=== PATIENT | male | born 1955 | race Caucasian/White ===

== ENCOUNTER 2020-11-05 20:08 | Emergency (ER) | payer BC ==
[~2020-11-05] VITALS: Ht 175.3 cm; Wt 84.1 kg
[2020-11-05] MEDS ORDERED: ketorolac tromethamine 15mg/ml inj. IM ONE (21:00)
[2020-11-05 21:47] LABS: CLARITY,URINE CLEAR (Clear); COLOR,URINE YELLOW (Yellow); GLUCOSE, URINE NEGATIVE (Neg); KETONES,URINE NEGATIVE (Neg); LEUKOCYTE ESTERASE ,URINE NEGATIVE (Neg); NITRITES, URINE NEGATIVE (Neg); OCCULT BLOOD,URINE NEGATIVE (Neg); PH,URINE 5.5 (4.8-8.0); PROTEIN,URINE NEGATIVE (Neg); UROBILINOGEN,URINE 0.2 E.U/dL (0.2-1.0)
[2020-11-05 21:48] LABS: UA COLLECTION TYPE URINAL
[2020-11-05 22:14] VITALS: BP 122/74
[2020-11-05] MEDS ORDERED: baclofen 10mg tablet PO STA (23:05)
[2020-11-05] MEDS ORDERED: LIDOcaine 5% patch TP STA (23:08)
[2020-11-05] MEDS ORDERED: BACL-11 PO (23:10)
[2020-11-05] MEDS ORDERED: LIDO700A32 TOP (23:10)
[2020-11-05] MEDS ORDERED: HYDR-3965 PO (23:10)
== END 2020-11-05 23:33 | disposition home or self-care (01) ==
LOC: ER 20:09
DX: S39.012A Strain of muscle, fascia and tendon of lower back, initial encounter (principal); R10.84 Generalized abdominal pain; M54.89 Other dorsalgia; Z79.899 Other long term (current) drug therapy; X58.XXXA Exposure to other specified factors, initial encounter; Y93.89 Activity, other specified; Y92.89 Other specified places as the place of occurrence of the external cause; Y99.8 Other external cause status
CPT/HCPCS: 20552; 74176; 81003; 96372; 99284; J1885